=== PATIENT | female | born 1965 | race Caucasian/White ===

== ENCOUNTER → 2016-08-31 | Outpatient (CLI) | payer OTHER ==
[2016-08-31 19:11] LABS: ALT 25 U/L (9-52); AST 24 U/L (14-36); Alkaline Phosphatase 79 U/L (38-126); Anion Gap 12 mmol/L; Blood Urea Nitrogen 11 mg/dL (7-17); Carbon Dioxide 26 mmol/L (22-30); Chloride 104 mmol/L (98-107); Cholesterol 184 mg/dL (<200); Glucose 87 mg/dL (74-99); HDL Cholesterol 53 mg/dL (40-60); Non-African American GFR(MDRD) >60 (>60 ml/min/1.73 sqM); Potassium 4.3 mmol/L (3.5-5.1); Sodium 142 mmol/L (137-145); Total Bilirubin 0.7 mg/dL (0.2-1.3); Total Protein 7.5 g/dL (6.3-8.2); Triglycerides 141 mg/dL (<150)
[2016-08-31 19:12] LABS: Basophils % (A) 0 %; CH 32.3; CHCM 32.9; Eosinophils # (A) 0.2 k/uL (0-0.7); Eosinophils % (A) 4 %; HCT 47.2 % (34.0-46.0); HGB 15.8 gm/dL (11.4-16.0); Luc # (Auto) 0.12; Luc % (Auto) 2; Lymphocytes # (A) 1.9 k/uL (1.0-4.8); Lymphocytes % (A) 28 %; MCH 33.1 pg (25.0-35.0); MCHC 33.5 g/dL (31.0-37.0); MCV 98.6 fL (80.0-100.0); Mean Platelet Volume 7.5; Monocytes # (A) 0.5 k/uL (0-1.0); Monocytes % (A) 7 %; Neutrophils # (A) 3.9 k/uL (1.3-7.7); Neutrophils % (A) 59 %; RBC 4.78 m/uL (3.80-5.40); RDW 12.6 % (11.5-15.5); WBC 6.6 k/uL (3.8-10.6); WBC (Perox) 6.66
== END ==
LOC: MMGSC 11:08
PROVIDERS: ATTEND Family Medicine
DX: R63.5 Abnormal weight gain (principal); R03.0 Elevated blood-pressure reading, without diagnosis of hypertension; Z51.81 Encounter for therapeutic drug level monitoring
CPT/HCPCS: 36415; 80053; 80061; 84439; 84443; 85025

== ENCOUNTER → 2016-10-04 | Outpatient (CLI) | payer OTHER | END | disposition home or self-care (01) | LOC: MMGSC 15:13 | PROVIDERS: ATTEND Family Medicine | DX: N76.0 Acute vaginitis (principal) | CPT/HCPCS: 87070; 87205; 87491; 87591 ==

== ENCOUNTER → 2016-10-13 | Day surgery (SDC) | payer BC, OTHER ==
[2016-10-13 13:13] VITALS: RESP 16; BMI 24.0
--- NOTE | 2016-10-13 16:02 | MM ---
Stereotactic core biopsy left breast. HISTORY: Microcalcifications. The calcifications in question within the left breast were targeted by the undersigned. The examination was performed by the surgeon. Specimen radiograph demonstrates numerous calcifications within the specimen submitted. Post procedural mammogram demonstrates appropriate deployment of radiopaque clip marker. The patient tolerated the procedure well and left the department in stable condition. Pathology results are pending. IMPRESSION: Successful stereotactic core biopsy left breast with pathology results pending. Pathology Results: Benign BREAST, LEFT, SITE A, CORE BIOPSY: FIBROCYSTIC CHANGES INCLUDING SCLEROSING ADENOSIS WITH CALCIFICATIONS, FIBROSIS AND CYSTS. Recommendation Follow up mammogram of the left breast in 6 months. LELED
[2016-10-13 16:04] VITALS: BP 112/74; PULSE 84; TEMP 97.8
--- NOTE | 2016-10-15 12:23 | PCN ---
The patient is a 51 year old white female who was noted to have a mammographic abnormality in the left breast for which stereotactic core biopsy was recommended. The area of the breast was retroareolar medial to the midline. The patient was positioned on a low rad table and the area of concern was localized. The approach for the biopsy was in the CC view from a superior aspect. This was consistent with ( ) this was chosen as the best view in order to see the microcalcifications. The mammotome ( ) an 8 gauge mammotome needle was driven to the correct coordinates and after prefire views were obtained, the needle was fired and postfire views were obtained. Multiple core biopsies were obtained. Radiograph of the specimen revealed the area of concern had been sampled. A marking clip was then left behind. The marking clip is a [id number]. The patient tolerated the procedure in stable condition. The specimen was sent to pathology for evaluation. It should be noted that prior to the biopsy, the patient had undergone a breast examination and no dominant mass or nodules of concern were noted in the breast and no axillary adenopathy of concern was identified in either breast or axilla. NAIN
== END ==
LOC: RADMAMWWP 12:50
PROVIDERS: ATTEND Surgery
DX: N60.12 Diffuse cystic mastopathy of left breast (principal); N60.22 Fibroadenosis of left breast; R92.8 Other abnormal and inconclusive findings on diagnostic imaging of breast; R92.0 Mammographic microcalcification found on diagnostic imaging of breast; R92.1 Mammographic calcification found on diagnostic imaging of breast
CPT/HCPCS: 88305; 19081; A4648; J2001

== ENCOUNTER → 2016-10-17 | Outpatient (CLI) | payer BC ==
--- NOTE | 2016-10-17 16:08 | BD ---
EXAMINATION TYPE: MG DEXA axial skeleton. DATE OF EXAM: 10/17/2016 COMPARISON: none CLINICAL HISTORY: 51-year-old female post menopausal Height: 5'3 Weight: 141 FRAX RISK QUESTIONS: Alcohol (3 or more units per day): no Family History (Parent hip fracture): no Glucocorticoids (More than 3mos): no (Ex: prednisone, prednisolone, methylprednisolone, dexamethasone, and hydrocortisone). History of Fracture in Adulthood: no Secondary Osteoporosis: 1. Type 1 Diabetes: no 2. Hyperthyroidism: no 3. Menopause before 45: no 4. Malnutrition: no 5. Chronic liver disease: no Rheumatoid Arthritis: no Current Tobacco Use: yes RISK FACTORS HISTORY OF: Family History of Osteoporosis: yes Active: no Postmenopausal woman: MEDICATIONS: Additional Medications: pain, Adderall, Xanax, naproxen Additional History: cervical spine 2007 EXAM MEASUREMENTS: Bone mineral densitometry was performed using the [employer] System. Bone mineral density as measured about the Lumbar spine is: ----- L1-L4(G/cm2): 1.028 T Score Values are as follows: ----- L2: -1.1 ----- L3: -0.8 ----- L4: -1.6 ----- L1-L4: -1.3 Bone mineral density about the R hip (g/cm2): 0.766 Bone mineral density about the L hip (g/cm2): 0.822 T Score values are as follows: -----R Neck: -2.0 -----L Neck: -1.6 -----R Total: -2.0 -----L Total: -1.7 IMPRESSION: Osteopenia as indicated by T score values in the lumbar spine and both hips. There is slightly increased risk of fracture and the patient may be considered for treatment. Re-Screen 2-5 years. NOTE: T-SCORE=SD OF THE YOUNG ADULT MEAN.
== END ==
LOC: RADBDWWP 14:01
PROVIDERS: ATTEND Family Medicine
DX: M85.88 Other specified disorders of bone density and structure, other site (principal); M85.851 Other specified disorders of bone density and structure, right thigh; M85.852 Other specified disorders of bone density and structure, left thigh; Z78.0 Asymptomatic menopausal state
CPT/HCPCS: 77080

== ENCOUNTER → 2016-10-17 | Outpatient (CLI) | payer BC ==
--- NOTE | 2016-10-17 15:42 | XR ---
Right RIBS HISTORY: Pain, trauma 2 weeks prior 4 views of the right ribs No comparisons Bone mineralization is reduced. Anterior rib fracture suspected at the anterior 11th rib level and po ssibly 10th rib with possible displacement. There is no pneumothorax or pleural effusion. IMPRESSION: Right 10th and possibly 11th rib fractures anteriorly.
== END ==
LOC: RADXRMAIN 14:26
PROVIDERS: ATTEND Family Medicine
DX: S22.31XA Fracture of one rib, right side, initial encounter for closed fracture (principal)

== ENCOUNTER → 2018-03-12 | Outpatient (CLI) | payer SELFPAY ==
--- NOTE | 2018-03-12 11:11 | MM ---
Reason for exam: additional evaluation requested from prior study. Last mammogram was performed 4 years and 6 months ago. History: Benign MG stereo VAD BX LT of the left breast, October 13, 2016. Took hormonal contraceptives for 23 years beginning at age 18. Physical Findings: Nurse did not find any significant physical abnormalities on exam. MG Diagnostic Mammo w CAD CANDELARIO Bilateral CC and MLO view(s) were taken. Prior study comparison: September 05, 2013, mammogram. The breast tissue is heterogeneously dense. This may lower the sensitivity of mammography. Benign appearing bilateral calcifications. Left biopsy marker present. These results were verbally communicated with the patient and result sheet given to the patient on 03/12/18. ASSESSMENT: Benign, BI-RAD 2 RECOMMENDATION: Routine screening mammogram of both breasts in 1 year.
== END | disposition home or self-care (01) ==
LOC: RADMAMWWP 09:53
PROVIDERS: ATTEND Family Medicine
DX: R92.8 Other abnormal and inconclusive findings on diagnostic imaging of breast (principal)
CPT/HCPCS: 77066

== ENCOUNTER → 2018-06-29 | Outpatient (CLI) | payer SELFPAY ==
--- NOTE | 2018-06-29 08:20 | XR ---
Left foot HISTORY: Left foot pain third and fourth metatarsal region 3 views of the left foot Bone mineralization, joint spaces, alignment are maintained. No fracture or dislocation. There is min imal plantar calcaneal spur. IMPRESSION: No significant abnormality evident to account for patient's symptoms
== END | disposition home or self-care (01) ==
LOC: RADXRMAIN 07:11
PROVIDERS: ATTEND Family Medicine
DX: R52 Pain, unspecified (principal)

== ENCOUNTER → 2019-04-26 | Outpatient (CLI) | payer OTHER ==
--- NOTE | 2019-04-26 12:50 | XR ---
EXAMINATION TYPE: XR hand complete LT DATE OF EXAM: 04/26/2019 COMPARISON: NONE HISTORY: Pain TECHNIQUE: Three views are submitted. FINDINGS: The osseous structures are intact. The joint spaces are preserved and there is no acute fracture or dislocation. Mild diffuse osteopenia. IMPRESSION: 1. No definite acute fracture or dislocation if symptoms persist, follow-up study in 7 to 10 days wo uld be suggested
== END | disposition home or self-care (01) ==
LOC: RAD 12:28
PROVIDERS: ATTEND Family Medicine
DX: M25.542 Pain in joints of left hand (principal)

== ENCOUNTER → 2019-05-10 | Outpatient (CLI) | payer SELFPAY ==
--- NOTE | 2019-05-13 11:31 | MM ---
Reason for exam: screening (asymptomatic). Last mammogram was performed 1 year and 2 months ago. History: Benign MG stereo VAD BX LT of the left breast, October 13, 2016. Took hormonal contraceptives for 23 years beginning at age 18. Physical Findings: A clinical breast exam by your physician is recommended on an annual basis and results should be correlated with mammographic findings. MG 3D Screening Mammo W/Cad Bilateral CC and MLO view(s) were taken. Prior study comparison: March 12, 2018, bilateral MG diagnostic mammo w CAD CANDELARIO. September 05, 2013, mammogram. The breast tissue is heterogeneously dense. This may lower the sensitivity of mammography. Benign appearing bilateral calcifications. No suspicious abnormality. Left biopsy marker. No significant changes when compared with prior studies. ASSESSMENT: Benign, BI-RAD 2 RECOMMENDATION: Routine screening mammogram of both breasts in 1 year.
== END | disposition home or self-care (01) ==
LOC: RADMAMWWP 07:02
PROVIDERS: ATTEND Family Medicine
DX: Z12.31 Encounter for screening mammogram for malignant neoplasm of breast (principal)
CPT/HCPCS: 77063; 77067

== ENCOUNTER 2019-06-14 15:36 | Emergency (ER) | payer OTHER ==
[2019-06-14 15:47] VITALS: BP 120/78; PULSE 94; RESP 20; TEMP 98.4
--- NOTE | 2019-06-14 16:56 | XR ---
EXAMINATION TYPE: XR ribs LT w pa chest xray DATE OF EXAM: 06/14/2019 COMPARISON: NONE HISTORY: Rib pain TECHNIQUE: 5 views FINDINGS: Heart and mediastinum are normal. Lungs are clear of infiltrate. There are no hilar masses. Diaphragm is normal. There is some mild pleural reaction at the left cardiophrenic angle. I see no r ib fracture. IMPRESSION: Mild pleural reaction at the left cardiophrenic angle. No fracture seen. Normal heart.
--- NOTE | 2019-06-14 17:18 | ED ---
Chest Pain HPI - General Chief Complaint: Chest Pain Stated Complaint: rib pain Time Seen by Provider: 06/14/19 16:00 Source: patient Mode of arrival: ambulatory Limitations: no limitations - History of Present Illness Initial Comments: 54-year-old female presenting for left rib pain. Patient states that yesterday while in the car she turned around leaning against the edge of the seat when she pushing in further to gain more distance to close a door (while sitting in from, door in back with twisting motion), she felt a pop in the right left side of the ribs, she states she felt a total of 2 pops and now has pain to palpation of the area as well as pain with deep inspiration. Patient denies experiencing similar symptoms before. Patient denies any chest pressure she denies shortness of breath. Denies any leg swelling history of cancer, recent surgeries, immobilization or DVT/pulmonary embolus. Remaining ROS (-). Upon arrival patient appears well there is no signs of acute distress - Related Data Home Medications Medication Instructions Recorded Confirmed ALPRAZolam [Xanax] 1 mg PO BID PRN 01/01/14 10/13/16 Dextroamphetamine/Amphetamine 30 mg PO BID 01/01/14 10/13/16 [Adderall] Hydrocodone/Acetaminophen [[place] 1 each PO QID PRN 01/01/14 10/13/16 10-325] Imitrex(Dose Unknown) 100 mg PO BID PRN 01/01/14 10/13/16 Naproxen [Naprosyn] 500 mg PO QID PRN 01/01/14 10/13/16 SUMAtriptan SUCCINATE [Imitrex] 4 mg SQ BID PRN 01/01/14 10/13/16 Allergies Allergy/AdvReac Type Severity Reaction Status Date / Time No Known Allergies Allergy Verified 06/14/19 15:47 Review of Systems ROS Statement: Those systems with pertinent positive or pertinent negative responses have been documented in the HPI. ROS Other: All systems not noted in ROS Statement are negative. Past Medical History Past Medical History: Chest Pain / Angina, Fibromyalgia Additional Past Medical History / Comment(s): migraines, hx angina years ago, kidney stones, History of Any Multi-Drug Resistant Organisms: None Reported Past Surgical History: Hysterectomy, Tonsillectomy Additional Past Surgical History / Comment(s): disk replacement in neck, ligia myringotomy, stent in ureter Past Anesthesia/Blood Transfusion Reactions: Previous Problems w/ Anesthesia Additional Past Anesthesia/Blood Transfusion Reaction / Comment(s): takes a while to come out, could "hear everything going on in the room" one time Past Psychological History: ADD/ADHD, Anxiety, Depression Smoking Status: Current every day smoker Past Alcohol Use History: None Reported Past Drug Use History: None Reported - Past Family History Mother Family Medical History: Cancer Additional Family Medical History / Comment(s): colon cancer General Exam - General Exam Comments Initial Comments: General: The patient is awake and alert, in no distress, in no distress. Eye: Pupils are equal, round and reactive to light, extra-ocular movements are intact. No nystagmus. There is normal conjunctiva bilaterally. No signs of icterus. Ears, nose, mouth and throat: There are moist mucous membranes and no oral lesions. Neck: The neck is supple, there is no tenderness or JVD. Cardiovascular: There is a regular rate and rhythm. No murmur, rub or gallop is appreciated. Respiratory: Lungs are clear to auscultation, respirations are non-labored, breath sounds are equal. No wheezes, stridor, rales, or rhonchi. Gastrointestinal: Soft, non-distended, non-tender abdomen without masses or organomegaly noted. There is no rebound or guarding present. Musculoskeletal: Pain to palpation no bruising swelling over the anterior lateral ribs 6/7, jumps when palpated. Normal ROM, no tenderness. Strength 5/5. Sensation intact. Radial pulses equal bilaterally 2+. Neurological: A&O x 3. CN II-XII intact grossly, There are no obvious motor or sensory deficits. Coordination appears grossly intact. Speech is normal. Skin: Skin is warm and dry and no rashes or lesions are noted. Psychiatric: Cooperative, appropriate mood & affect, normal judgment. Limitations: no limitations Course Vital Signs 06/14/19 06/14/19 06/14/19 15:44 16:20 17:48 Temperature 98.4 F 98.4 F Pulse Rate 94 94 Pulse Rate [ 94 Bilateral] Respiratory 20 20 Rate Blood Pressure 120/78 120/78 O2 Sat by Pulse 99 99 Oximetry Chest Pain MDM - MDM 54-year-old female presents today for left-sided rib pain reproducible on examination with touch as well as rotation of the trunk. Patient has lung sounds present in all antunez. There is no evidence of pneumothorax there is a pleural reaction noted at the cardiophrenic angle this is nonspecific findigns. Patient denies SOB. Pain is pleuritic localized to the left ribs. Patient appears well. VS stable. Patient will be discharged with PCP f/u. Incentive spirometer given and instrcuted to use 10x a day while awake. Patient will be discharged at this time. Recommended repeat CXR in 1 week. If develop SOB patient is to return. Patient agreeable to care plan and discharge at this time. Discussed case and reviewed imaging studies with Dr. Gasca who is agreeable to care plan. Disposition Clinical Impression: Rib pain on left side Disposition: HOME SELF-CARE Condition: Good Instructions (If sedation given, give patient instructions): Rib Fracture (ED) Additional Instructions: Please use medication as discussed. Please follow-up with family doctor in the next 2 days. Use incentive spirometer as discussed. Please return to emergency room if the symptoms increase or worsen or for any other concerns. Is patient prescribed a controlled substance at d/c from ED?: No Referrals: Ruth Cardenas MD [Primary Care Provider] - 1-2 days Time of Disposition: 17:16
== END 2019-06-14 17:48 | disposition home or self-care (01) ==
LOC: EC 15:36
DX: R07.81 Pleurodynia (principal); F09 Unspecified mental disorder due to known physiological condition; F17.200 Nicotine dependence, unspecified, uncomplicated; Z79.899 Other long term (current) drug therapy; Z96.698 Presence of other orthopedic joint implants; X50.1XXA Overexertion from prolonged static or awkward postures, initial encounter; Y93.89 Activity, other specified; Y92.810 Car as the place of occurrence of the external cause
CPT/HCPCS: 99283

== ENCOUNTER 2019-06-18 10:58 | Emergency (ER) | payer OTHER ==
[2019-06-18 11:03] VITALS: RESP 18; TEMP 98.1
[2019-06-18] MEDS ORDERED: HYDROmorphone 1 MG/ML 1 ML SYRINGE IVP STA (11:43)
[2019-06-18] MEDS ORDERED: KETOROLAC 30 MG/ML 1 ML VIAL IVP STA (11:43)
[2019-06-18] MEDS ORDERED: SODIUM CHLORIDE 0.9% 1,000 ML IV ONE (11:44)
[2019-06-18] MEDS ORDERED: ONDANSETRON 4 MG/2 ML VIAL IVP STA (11:54)
--- NOTE | 2019-06-18 11:55 | ED ---
General Adult HPI - General Chief complaint: Recheck/Abnormal Lab/Rx Stated complaint: recheck - rib pain Time Seen by Provider: 06/18/19 11:00 Source: patient, RN notes reviewed, old records reviewed Mode of arrival: ambulatory Limitations: no limitations - History of Present Illness Initial comments: This a 54-year-old female who presents emergency Department complaining of rib pain. Patient states she's in emergency department a week ago for the same rib pain it occurred after coughing. Patient states last night she twisted bed and the pain came back per patient states since that she's also started vomiting and she doesn't know if it secondary to pain or she has something else going on. Patient denies any anterior chest pain or any shortness of breath per patient denies fever chills per patient denies any abdominal pain. Patient states she is nauseated but has no diarrhea. Patient denies any back pain. Patient denies dysuria hematuria urinary frequency. - Related Data Home Medications Medication Instructions Recorded Confirmed ALPRAZolam [Xanax] 1 mg PO BID PRN 01/01/14 10/13/16 Dextroamphetamine/Amphetamine 30 mg PO BID 01/01/14 10/13/16 [Adderall] Hydrocodone/Acetaminophen [[place] 1 each PO QID PRN 01/01/14 10/13/16 10-325] Imitrex(Dose Unknown) 100 mg PO BID PRN 01/01/14 10/13/16 Naproxen [Naprosyn] 500 mg PO QID PRN 01/01/14 10/13/16 SUMAtriptan SUCCINATE [Imitrex] 4 mg SQ BID PRN 01/01/14 10/13/16 Previous Rx's Medication Instructions Recorded Metoclopramide [Reglan] 10 mg PO Q8H #5 tab 06/18/19 Allergies Allergy/AdvReac Type Severity Reaction Status Date / Time No Known Allergies Allergy Verified 06/18/19 11:04 Review of Systems ROS Statement: Those systems with pertinent positive or pertinent negative responses have been documented in the HPI. ROS Other: All systems not noted in ROS Statement are negative. Past Medical History Past Medical History: Chest Pain / Angina, Fibromyalgia Additional Past Medical History / Comment(s): migraines, hx angina years ago, kidney stones, History of Any Multi-Drug Resistant Organisms: None Reported Past Surgical History: Hysterectomy, Tonsillectomy Additional Past Surgical History / Comment(s): disk replacement in neck, ligia myringotomy, stent in ureter Past Anesthesia/Blood Transfusion Reactions: Previous Problems w/ Anesthesia Additional Past Anesthesia/Blood Transfusion Reaction / Comment(s): takes a while to come out, could "hear everything going on in the room" one time Past Psychological History: ADD/ADHD, Anxiety, Depression Smoking Status: Current every day smoker Past Alcohol Use History: None Reported Past Drug Use History: None Reported - Past Family History Mother Family Medical History: Cancer Additional Family Medical History / Comment(s): colon cancer General Exam - General Exam Comments Initial Comments: GENERAL: Patient is well-developed and well-nourished. Patient is nontoxic and well- hydrated and is in moderate distress. ENT: Neck is soft and supple. No significant lymphadenopathy is noted. Oropharynx is clear. Moist mucous membranes. Neck has full range of motion without eliciting any pain. EYES: The sclera were anicteric and conjunctiva were pink and moist. Extraocular movements were intact and pupils were equal round and reactive to light. Eyelids were unremarkable. PULMONARY: Unlabored respirations. Good breath sounds bilaterally. No audible rales rhonchi or wheezing was noted. CARDIOVASCULAR: There is a regular rate and rhythm without any murmurs gallops or rubs. Patient has tenderness in the left lateral lower ribs ABDOMEN: Soft and nontender with normal bowel sounds. SKIN: Skin is clear with no lesions or rashes and otherwise unremarkable. NEUROLOGIC: Patient is alert and oriented x3. Cranial nerves II through XII are grossly intact. Motor and sensory are also intact. Normal speech, volume and content. Symmetrical smile MUSCULOSKELETAL: Normal extremities with adequate strength and full range of motion. LYMPHATICS: No significant lymphadenopathy is noted PSYCHIATRIC: Normal psychiatric evaluation. Limitations: no limitations Course Vital Signs 06/18/19 11:01 Temperature 98.1 F Pulse Rate 86 Respiratory 18 Rate Blood Pressure 114/76 O2 Sat by Pulse 98 Oximetry Medical Decision Making - Lab Data Result diagrams: 06/18/19 12:00 06/18/19 12:00 Lab Results 06/18/19 06/18/19 Range/Units 12:00 12:00 WBC 6.6 (3.8-10.6) k/uL RBC 4.32 (3.80-5.40) m/uL Hgb 13.3 (11.4-16.0) gm/dL Hct 39.2 (34.0-46.0) % MCV 90.7 (80.0-100.0) fL MCH 30.7 (25.0-35.0) pg MCHC 33.8 (31.0-37.0) g/dL RDW 12.6 (11.5-15.5) % Plt Count 248 (150-450) k/uL Neutrophils % 74 % Lymphocytes % 18 % Monocytes % 6 % Eosinophils % 1 % Basophils % 0 % Neutrophils # 4.9 (1.3-7.7) k/uL Lymphocytes # 1.2 (1.0-4.8) k/uL Monocytes # 0.4 (0-1.0) k/uL Eosinophils # 0.1 (0-0.7) k/uL Basophils # 0.0 (0-0.2) k/uL Sodium 137 (137-145) mmol/L Potassium 4.9 (3.5-5.1) mmol/L Chloride 106 (98-107) mmol/L Carbon Dioxide 22 (22-30) mmol/L Anion Gap 9 mmol/L BUN 15 (7-17) mg/dL Creatinine 0.60 (0.52-1.04) mg/dL Est GFR (CKD-EPI)AfAm >90 (>60 ml/min/1.73 sqM) Est GFR (CKD-EPI)NonAf >90 (>60 ml/min/1.73 sqM) Glucose 102 H (74-99) mg/dL Calcium 9.6 (8.4-10.2) mg/dL Total Bilirubin 1.3 (0.2-1.3) mg/dL AST 49 H (14-36) U/L ALT 23 (4-34) U/L Alkaline Phosphatase 77 (38-126) U/L Total Protein 7.2 (6.3-8.2) g/dL Albumin 4.3 (3.5-5.0) g/dL Amylase 38 (30-110) U/L Lipase 56 (23-300) U/L Disposition Clinical Impression: Chest wall pain, Acute vomiting Disposition: HOME SELF-CARE Condition: Good Instructions (If sedation given, give patient instructions): Acute Nausea and Vomiting (ED), Chest Wall Pain (ED) Prescriptions: Metoclopramide [Reglan] 10 mg PO Q8H #5 tab Is patient prescribed a controlled substance at d/c from ED?: No Referrals: Ruth Cardenas MD [Primary Care Provider] - 1-2 days Time of Disposition: 13:05
[2019-06-18 12:16] LABS: Basophils % (A) 0 %; Eosinophils # (A) 0.1 k/uL (0-0.7); Eosinophils % (A) 1 %; HCT 39.2 % (34.0-46.0); HGB 13.3 gm/dL (11.4-16.0); Lymphocytes # (A) 1.2 k/uL (1.0-4.8); Lymphocytes % (A) 18 %; MCH 30.7 pg (25.0-35.0); MCHC 33.8 g/dL (31.0-37.0); MCV 90.7 fL (80.0-100.0); Mean Platelet Volume 7.2; Monocytes # (A) 0.4 k/uL (0-1.0); Monocytes % (A) 6 %; Neutrophils # (A) 4.9 k/uL (1.3-7.7); Neutrophils % (A) 74 %; Platelet Count 248 k/uL (150-450); RBC 4.32 m/uL (3.80-5.40); RDW 12.6 % (11.5-15.5); WBC 6.6 k/uL (3.8-10.6)
--- NOTE | 2019-06-18 12:27 | XR ---
EXAMINATION TYPE: XR chest 2V DATE OF EXAM: 06/18/2019 COMPARISON: Prior chest x-ray dated 06/14/2019 HISTORY: Difficulty breathing TECHNIQUE: Frontal and lateral views of the chest are obtained. FINDINGS: There is no focal air space opacity, pleural effusion, or pneumothorax seen. The cardiac silhouette size is within normal limits. The osseous structures are intact, postop changes noted to the cervical spine, there are overlying artifacts. IMPRESSION: No acute cardiopulmonary process.
[2019-06-18 12:33] LABS: ALT 23 U/L (4-34); AST 49 U/L (14-36); African American GFR (CKD) >90 (>60 ml/min/1.73 sqM); Albumin 4.3 g/dL (3.5-5.0); Alkaline Phosphatase 77 U/L (38-126); Amylase 38 U/L (30-110); Anion Gap 9 mmol/L; Blood Urea Nitrogen 15 mg/dL (7-17); Calcium 9.6 mg/dL (8.4-10.2); Carbon Dioxide 22 mmol/L (22-30); Chloride 106 mmol/L (98-107); Glucose 102 mg/dL (74-99); Non-African American GFR(CKD) >90 (>60 ml/min/1.73 sqM); Sodium 137 mmol/L (137-145); Total Bilirubin 1.3 mg/dL (0.2-1.3); Total Protein 7.2 g/dL (6.3-8.2)
[2019-06-18 12:45] LABS: Potassium 4.9 mmol/L (3.5-5.1)
[2019-06-18] MEDS ORDERED: METOCLOPRAMIDE 5 MG/ML 2 ML VIAL IVP STA (12:46)
[2019-06-18] MEDS ORDERED: ONDANSETRON 4 MG ODT STARTER PACK 2 TAB BTL PO STA (13:05)
[2019-06-18 13:28] VITALS: BP 112/79; PULSE 81
== END 2019-06-18 13:28 | disposition home or self-care (01) ==
LOC: EC 10:58
DX: R07.89 Other chest pain (principal); R11.2 Nausea with vomiting, unspecified; F90.9 Attention-deficit hyperactivity disorder, unspecified type; F41.9 Anxiety disorder, unspecified; F32.9 Major depressive disorder, single episode, unspecified; M79.7 Fibromyalgia; F17.200 Nicotine dependence, unspecified, uncomplicated; I25.2 Old myocardial infarction; Z79.899 Other long term (current) drug therapy
CPT/HCPCS: 36415; 80053; 82150; 83690; 85025; 71046; 99284; 96374; 96375 ×3; 96361; J2765; J2405; J1885; J1170

== ENCOUNTER → 2020-07-16 | Outpatient (CLI) | payer OTHER ==
--- NOTE | 2020-07-17 09:27 | CTL ---
EXAMINATION TYPE: CT Low Dose Lung DATE OF EXAM ORDERED: 07/16/2020 HISTORY: Personal tobacco use. Lung cancer screening CT DLP: 83.9 mGycm Automated exposure control for dose reduction was used. SCREENING VISIT: Initial COMPARISON: None TECHNIQUE: Low dose computed tomography scan was performed through the chest at 1 mm thick sections a nd reconstructed images in the coronal plane at [address] DIAGNOSTIC QUALITY: Satisfactory FINDINGS: LUNG NODULES: None. There is a small area of pneumonitis in the anterior right upper lobe. Example image series 4 image 6 5. LUNGS: COPD: Severity: None Fibrosis: Severity: None Lymph nodes: None Other findings: None RIGHT PLEURAL SPACE: Effusion: None Calcification: None Thickening: None Pneumothorax: None LEFT PLEURAL SPACE: Effusion: None Calcification: None Thickening: None Pneumothorax: None HEART: Heart Size: Normal Coronary calcification: None Pericardial effusion: None OTHER FINDINGS: Upper abdomen: Normal Bony thorax: Normal Supraclavicular region: Normal Other: The ascending thoracic aorta at the level of main pulmonary artery is 3.2 cm. Main pulmonary a rtery at the bifurcation is 2.3 cm. IMPRESSION: 1. Normal low-dose CT chest FOLLOW UP CT CHEST RECOMMENDATION: Follow-up low-dose CT chest one year CT LUNG RAD: Lung-Rad 1 Negative
== END | disposition home or self-care (01) ==
LOC: RADCTMAIN 16:52
PROVIDERS: ATTEND Family Medicine
DX: Z12.2 Encounter for screening for malignant neoplasm of respiratory organs (principal)
CPT/HCPCS: 71271

== ENCOUNTER → 2020-08-11 | Outpatient (CLI) | payer OTHER ==
--- NOTE | 2020-08-12 10:31 | MM ---
Reason for exam: screening (asymptomatic). Last mammogram was performed 1 year and 3 months ago. History: Benign MG stereo VAD BX LT of the left breast, October 13, 2016. Took hormonal contraceptives for 23 years beginning at age 18. Physical Findings: A clinical breast exam by your physician is recommended on an annual basis and results should be correlated with mammographic findings. MG 3D Screening Mammo W/Cad Bilateral CC and MLO view(s) were taken. Prior study comparison: May 10, 2019, bilateral MG 3d screening mammo w/cad. March 12, 2018, bilateral MG diagnostic mammo w CAD CANDELARIO. The breast tissue is heterogeneously dense. This may lower the sensitivity of mammography. Stable benign calcifications. There is no discrete abnormality. No significant changes when compared with prior studies. ASSESSMENT: Benign, BI-RAD 2 RECOMMENDATION: Routine screening mammogram of both breasts in 1 year.
== END | disposition home or self-care (01) ==
LOC: RADMAMWWP 09:03
PROVIDERS: ATTEND Family Medicine
DX: Z12.31 Encounter for screening mammogram for malignant neoplasm of breast (principal)
CPT/HCPCS: 77063; 77067

== ENCOUNTER → 2020-08-31 | Outpatient (CLI) | payer OTHER ==
[2020-08-31 14:39] LABS: Albumin 4.7 g/dL (3.80-4.90); Albumin/Globulin Ratio 2.35 (1.60-3.17); Anion Gap 4.6 mmol/L (4.00-12.00); BUN/Creat Ratio 21.43 Ratio (12.00-20.00); Calcium 9.6 mg/dL (8.7-10.3); Carbon Dioxide 29.4 mmol/L (21.6-31.8); Chol/HDL Ratio 3.53; LDL Cholesterol,Calculated 93.6 mg/dL (0.0-131.0); Non-African American GFR(CKD) 97.5 (60.0-200.0); Potassium 4.3 mmol/L (3.5-5.5); Total Bilirubin 0.7 mg/dL (0.3-1.2); Total Protein 6.7 g/dL (6.2-8.2); VLDL Calculation 20.4 mg/dL (5.00-40.00)
[2020-08-31 14:41] LABS: Basophils # (A) 0.02 X 10*3/uL (0.00-0.10); Basophils % (A) 0.4 %; Eosinophils # (A) 0.13 X 10*3/uL (0.04-0.35); Eosinophils % (A) 2.3 %; HCT 42.5 % (37.2-46.3); Lymphocytes # (A) 1.91 X 10*3/uL (0.90-5.00); Lymphocytes % (A) 34.4 %; MCH 30.6 pg (27.0-32.0); MCHC 32.9 g/dL (32.0-37.0); MCV 92.8 fL (80.0-97.0); Mean Platelet Volume 9.8 fL (9.5-12.2); Monocytes # (A) 0.45 X 10*3/uL (0.20-1.00); Monocytes % (A) 8.1 %; Neutrophils # (A) 3.04 X 10*3/uL (1.80-7.70); Neutrophils % (A) 54.6 %; Platelet Count 300 X 10*3/uL (140-440); RBC 4.58 X 10*6/uL (4.10-5.20); RDW 12.1 % (11.5-14.5); WBC 5.56 X 10*3/uL (4.50-10.00)
== END | disposition home or self-care (01) ==
LOC: LABWHC1 10:16
PROVIDERS: ATTEND Family Medicine
DX: Z00.00 Encounter for general adult medical examination without abnormal findings (principal)
CPT/HCPCS: 36415; 80053; 80061; 82306; 82607; 84443; 85025

== ENCOUNTER 2020-12-07 12:55 | Emergency (ER) | payer OTHER ==
[2020-12-07 13:19] VITALS: BP 119/76; PULSE 96; RESP 18; TEMP 98.5
[2020-12-07] MEDS ORDERED: CYCLOBENZAPRINE 10 MG TAB PO STA (14:23)
[2020-12-07] MEDS ORDERED: KETOROLAC 15 MG/ML 1 ML VIAL IM STA (14:23)
--- NOTE | 2020-12-07 14:28 | ED ---
General Adult HPI - General Chief complaint: Back Pain/Injury Stated complaint: back pain Time Seen by Provider: 12/07/20 13:35 Source: patient, family, RN notes reviewed, old records reviewed Mode of arrival: ambulatory Limitations: no limitations - History of Present Illness Initial comments: 55-year-old white female, alert and oriented 4, presents to the emergency room with complaints of low back pain. Patient states that she went to bend over and coughed at the same time and she felt a twinge in her lower back. She states that she did take an [place] with no relief. She denies any other symptoms. She states that she has not had this happen to her before. She has no bowel or bladder incontinence, no nausea vomiting or fevers. She is able to move all 4 extremities with no difficulty. -: hour(s) (4) Location: back (Low) Radiation: non-radiation Quality: stabbing, sharp, dull Consistency: constant Improves with: rest Worsens with: movement Associated Symptoms: denies other symptoms Treatments Prior to Arrival: other ([place]) - Related Data Home Medications Medication Instructions Recorded Confirmed ALPRAZolam [Xanax] 1 mg PO BID PRN 01/01/14 10/13/16 Dextroamphetamine/Amphetamine 30 mg PO BID 01/01/14 10/13/16 [Adderall] Hydrocodone/Acetaminophen [[place] 1 each PO QID PRN 01/01/14 10/13/16 10-325] Imitrex(Dose Unknown) 100 mg PO BID PRN 01/01/14 10/13/16 Naproxen [Naprosyn] 500 mg PO QID PRN 01/01/14 10/13/16 SUMAtriptan SUCCINATE [Imitrex] 4 mg SQ BID PRN 01/01/14 10/13/16 Previous Rx's Medication Instructions Recorded Metoclopramide [Reglan] 10 mg PO Q8H #5 tab 06/18/19 Ibuprofen [Motrin] 600 mg PO Q8HR PRN #30 tab 12/07/20 Lidocaine 5% Patch [Lidoderm] 1 patch TOPICAL DAILY 10 Days #10 12/07/20 patch Allergies Allergy/AdvReac Type Severity Reaction Status Date / Time No Known Allergies Allergy Verified 12/07/20 13:19 Review of Systems ROS Statement: Those systems with pertinent positive or pertinent negative responses have been documented in the HPI. ROS Other: All systems not noted in ROS Statement are negative. Past Medical History Past Medical History: Chest Pain / Angina, Fibromyalgia Additional Past Medical History / Comment(s): migraines, hx angina years ago, kidney stones, History of Any Multi-Drug Resistant Organisms: None Reported Past Surgical History: Hysterectomy, Tonsillectomy Additional Past Surgical History / Comment(s): disk replacement in neck, ligia myringotomy, stent in ureter Past Anesthesia/Blood Transfusion Reactions: Previous Problems w/ Anesthesia Additional Past Anesthesia/Blood Transfusion Reaction / Comment(s): takes a while to come out, could "hear everything going on in the room" one time Past Psychological History: ADD/ADHD, Anxiety, Depression Smoking Status: Current every day smoker Past Alcohol Use History: None Reported Past Drug Use History: None Reported - Past Family History Mother Family Medical History: Cancer Additional Family Medical History / Comment(s): colon cancer General Exam Limitations: no limitations General appearance: alert, in no apparent distress Head exam: Present: atraumatic, normocephalic, normal inspection Eye exam: Present: normal appearance, PERRL, EOMI. Absent: scleral icterus, conjunctival injection, periorbital swelling Neck exam: Present: normal inspection, full ROM. Absent: tenderness, meningismus, lymphadenopathy, thyromegaly Respiratory exam: Present: normal lung sounds bilaterally. Absent: respiratory distress, wheezes, rales, rhonchi, stridor Cardiovascular Exam: Present: regular rate, normal rhythm, normal heart sounds. Absent: systolic murmur, diastolic murmur, rubs, gallop, clicks GI/Abdominal exam: Present: soft, normal bowel sounds. Absent: distended, tenderness, guarding, rebound, rigid Extremities exam: Present: normal inspection, full ROM, normal capillary refill. Absent: tenderness, pedal edema, joint swelling, calf tenderness Back exam: Present: normal inspection, full ROM, tenderness (lumbar), vertebral tenderness. Absent: CVA tenderness (R), CVA tenderness (L), paraspinal tenderness, rash noted Expanded Back exam: Absent: saddle anesthesia Neurological exam: Present: alert, oriented X3, CN II-XII intact Expanded Patient oriented to: Present: person, place, time Speech: Present: fluid speech Motor strength exam: RUE: 5, LUE: 5, RLE: 5, LLE: 5 Eye Response: (4) open spontaneously Motor Response: (6) obeys commands Verbal Response: (5) oriented Psychiatric exam: Present: normal affect, normal mood Skin exam: Present: warm, dry, intact, normal color. Absent: rash Course Vital Signs 12/07/20 13:16 Temperature 98.5 F Pulse Rate 96 Respiratory 18 Rate Blood Pressure 119/76 O2 Sat by Pulse 98 Oximetry Medical Decision Making - Medical Decision Making Patient presents with nontraumatic low back pain. States that she bent over and coughed and she felt a pull in her lower back. She states that she did try [place] at home. Patient was given Toradol and Flexeril in the emergency room. She is able to ambulate. She'll be directed to follow up with her primary care doctor and continue Motrin [id number]-[id number] and Lidoderm patches as needed. Return with any new or worsening symptoms. She was given low back exercises and follow up with orthopedics. Disposition Clinical Impression: Back pain Disposition: HOME SELF-CARE Condition: Good Instructions (If sedation given, give patient instructions): Acute Low Back Pain (ED), Lower Back Exercises (ED) Additional Instructions: Take Motrin 600 mg every 8 hours as needed for pain. You can also use topical Lidoderm patches as prescribed or topical icy/hot. Return if any new or worsening symptoms including increased pain, fevers or incontinence of bowel or bladder. Prescriptions: Lidocaine 5% Patch [Lidoderm] 1 patch TOPICAL DAILY 10 Days #10 patch Ibuprofen [Motrin] 600 mg PO Q8HR PRN #30 tab PRN Reason: Pain Is patient prescribed a controlled substance at d/c from ED?: No Referrals: Ruth Cardenas MD [Primary Care Provider] - 1-2 days Emory Fowler MD [Medical Doctor] - 1-2 days Time of Disposition: 14:43
== END 2020-12-07 16:02 | disposition home or self-care (01) ==
LOC: EC 12:55
DX: M54.5 Low back pain (principal); F32.9 Major depressive disorder, single episode, unspecified; F41.9 Anxiety disorder, unspecified; F90.9 Attention-deficit hyperactivity disorder, unspecified type; M79.7 Fibromyalgia; F17.200 Nicotine dependence, unspecified, uncomplicated; Z79.1 Long term (current) use of non-steroidal anti-inflammatories (NSAID); Z79.899 Other long term (current) drug therapy
CPT/HCPCS: 96372; 99283; J1885

== ENCOUNTER → 2020-12-30 | Outpatient (CLI) | payer OTHER ==
--- NOTE | 2020-12-30 12:35 | CT ---
EXAMINATION TYPE: CT abdomen pelvis wo con DATE OF EXAM: 12/30/2020 HISTORY: Rt flank pain; history of kidney stones. Possible kidney stone. CT DLP: 904 mGycm. Automated Exposure Control for Dose Reduction was Utilized. TECHNIQUE: CT scan of the abdomen and pelvis is performed without oral or IV contrast. COMPARISON: NONE FINDINGS: Within the limitations of a non-contrast study, the following observations are made. LUNG BASES: No significant abnormality is appreciated. LIVER/GB: No significant abnormality is appreciated. PANCREAS: Kcaw-sw-[id number] generalized fat replaced atrophy. Small splenule in the region of pancreat ic tail axial image 45. SPLEEN: No significant abnormality is seen. ADRENALS: Slight asymmetric thickening left adrenal gland consistent with benign lipid rich hyperplas ia. KIDNEYS: There is elongated 6 to 7 mm calculus lower pole right kidney limits 60. No left-sided nephr olithiasis. No hydronephrosis seen bilaterally. Some cortical thinning bilaterally is present. No int raluminal calculus in the poorly distended bladder. BOWEL: Suboptimal evaluation without enteric contrast. Debris-filled stomach suggests recent meal ing estion. Normal-appearing appendix from base of cecum and right lower quadrant. Some sigmoid colonic d iverticula without CT evidence for acute diverticulitis. No suspicious small or large bowel dilatatio n. GENITAL ORGANS: Uterus surgically absent or markedly atrophic. Some scattered bilateral pelvic phlebo liths. LYMPH NODES: No greater than 1cm abdominal or pelvic lymph nodes are appreciated. OSSEOUS STRUCTURES: Prominent Schmorl node inferior T12 endplate right aspect. OTHER: Mild calcified plaque of the aorta extends into branch vessels IMPRESSION: Confirmation of 6 to 7 mm elongated nonobstructing calculus lower pole of the right kidne y. No hydronephrosis or obstructing ureteral calculi bilaterally. No acute findings are evident.
== END | disposition home or self-care (01) ==
LOC: RADCTMAIN 11:54
PROVIDERS: ATTEND Urology
DX: N20.0 Calculus of kidney (principal)
CPT/HCPCS: 74176

== ENCOUNTER → 2021-01-19 | Outpatient (CLI) | payer OTHER ==
[2021-01-19 11:20] LABS: Basophils % (A) 1 %; Eosinophils # (A) 0.1 k/uL (0-0.7); Eosinophils % (A) 3 %; HCT 42.4 % (34.0-46.0); HGB 14.4 gm/dL (11.4-16.0); Lymphocytes # (A) 1.6 k/uL (1.0-4.8); Lymphocytes % (A) 37 %; MCH 31.5 pg (25.0-35.0); MCHC 33.9 g/dL (31.0-37.0); MCV 92.8 fL (80.0-100.0); Monocytes # (A) 0.2 k/uL (0-1.0); Monocytes % (A) 5 %; Neutrophils # (A) 2.2 k/uL (1.3-7.7); Neutrophils % (A) 52 %; Platelet Count 299 k/uL (150-450); RBC 4.57 m/uL (3.80-5.40); RDW 13.2 % (11.5-15.5); WBC 4.2 k/uL (3.8-10.6)
[2021-01-19 11:53] LABS: African American GFR (CKD) >90 (>60 ml/min/1.73 sqM); Anion Gap 8 mmol/L; Blood Urea Nitrogen 13 mg/dL (7-17); Calcium 9.9 mg/dL (8.4-10.2); Carbon Dioxide 26 mmol/L (22-30); Chloride 106 mmol/L (98-107); Glucose 100 mg/dL (74-99); Non-African American GFR(CKD) >90 (>60 ml/min/1.73 sqM); Potassium 4.4 mmol/L (3.5-5.1); Sodium 140 mmol/L (137-145)
== END | disposition home or self-care (01) ==
LOC: LABPAT 09:45
PROVIDERS: ATTEND Urology
DX: Z01.812 Encounter for preprocedural laboratory examination (principal); N20.9 Urinary calculus, unspecified
CPT/HCPCS: 80048; 85025

== ENCOUNTER 2021-01-21 09:22 | Day surgery (SDC) | payer OTHER ==
[2021-01-19 11:25] VITALS: BMI 27.8
--- NOTE | 2021-01-20 18:19 | P.GSHP ---
History of Present Illness H&P Date: 01/20/21 Chief Complaint: Right flank pain The patient is a 55-year-old white female with a history of kidney stones. She now presents with right flank and groin pain. CT scan shows a 6-7 mm right lower pole renal calculus. She was offered the options of ESWL versus ureteroscopy with laser lithotripsy and has elected to undergo the latter. - Constitutional Constitutional: Denies chills, Denies fever - Gastrointestinal Gastrointestinal: Reports nausea - Genitourinary (Female) Genitourinary: Reports flank pain, Reports kidney stones, Denies hematuria Past Medical History Past Medical History: Chest Pain / Angina, Fibromyalgia Additional Past Medical History / Comment(s): migraines, hx angina years ago, left ureteroscopy with laser lithotripsy History of Any Multi-Drug Resistant Organisms: None Reported Past Surgical History: Hysterectomy, Tonsillectomy Additional Past Surgical History / Comment(s): disk replacement in neck, ligia myringotomy, stent in ureter Past Anesthesia/Blood Transfusion Reactions: Previous Problems w/ Anesthesia Additional Past Anesthesia/Blood Transfusion Reaction / Comment(s): takes a while to come out, could "hear everything going on in the room" one time Smoking Status: Current every day smoker - Past Family History Mother Family Medical History: Cancer Additional Family Medical History / Comment(s): colon cancer Medications and Allergies Home Medications Medication Instructions Recorded Confirmed Type Dextroamphetamine/Amphetamine 30 mg PO BID 01/01/14 01/19/21 History [Adderall] Hydrocodone/Acetaminophen [[place] 1 each PO QID PRN 01/01/14 01/19/21 History 10-325] Naproxen [Naprosyn] 500 mg PO QID PRN 01/01/14 01/19/21 History Ibuprofen [Motrin] 600 mg PO Q8HR PRN #30 tab 12/07/20 01/19/21 Rx Metoclopramide [Reglan] 10 mg PO Q8H PRN 01/19/21 01/19/21 History SUMAtriptan SUCCINATE [Imitrex] 100 mg PO DIRECTED PRN 01/19/21 01/19/21 History Allergies Allergy/AdvReac Type Severity Reaction Status Date / Time amoxicillin [From Augmentin] Allergy Nausea & Verified 01/19/21 11:16 Vomiting cefaclor [From Ceclor] Allergy Nausea & Verified 01/19/21 11:16 Vomiting clavulanic acid Allergy Nausea & Verified 01/19/21 11:16 [From Augmentin] Vomiting Surgical - Exam - General well developed, well nourished, no distress - Neck no masses, trachea midline - Respiratory normal respiratory effort - Abdomen Abdomen: soft, tender (Mild right CVA tenderness), no guarding, no rigid, no rebound - Psychiatric oriented to time, oriented to person, oriented to place, speech is normal, memory intact Results - Imaging CT scan - abdomen: report reviewed, image reviewed Assessment and Plan (1) Calculus of kidney Status: Acute Code(s): N20.0 - CALCULUS OF KIDNEY SNOMED Code(s): 34640819 Plan: Cystoscopy, right ureteroscopy with holmium laser lithotripsy, possible stone basketing, possible ureteral stent insertion. The procedure has been reviewed in detail with the patient. She is aware of potential risks, which include anesthesia, bleeding, infection, and ureteral injury.
[~2021-01-21 09:22] MED LIST: DEXAMETHASONE SOD PHOSPHATE 4 MG/ML 1 ML VIAL IV ONE; HYDROmorphone 0.5 MG/0.5 ML SYRINGE IVP PRN; LACTATED RINGERS 1,000 ML IV SCH; LEVOFLOXACIN 500MG-D5W PMX 500 MG in DEXTROSE/WATER 1 100ML.BAG IVPB PRN; ONDANSETRON 4 MG/2 ML VIAL IVP ONE
[2021-01-21] MEDS ORDERED: fentaNYL (PF) 50 MCG/ML 2 ML AMP IVP ONE ×2 (10:06→11:05)
--- NOTE | 2021-01-21 10:08 | XR ---
KUB HISTORY: Preop right-sided kidney stone Frontal KUB on 2 images correlated to prior KUB 01/02/2014, CT 12/30/2020 There is bowel gas which obscures some detail. Faint calcification is noted over the lower pole of th e right kidney measuring approximately 5 to 6 mm and corresponding to CT finding. No evident pneumope ritoneum or bowel obstruction. There are phleboliths noted within the pelvis. Bone mineralization is stable, there is a slight spinal curvature. IMPRESSION: Right-sided nephrolithiasis.
[2021-01-21] MEDS ORDERED: NEOSTIGMINE 1 MG/ML 10 ML VIAL ONE (11:50)
[2021-01-21] MEDS ORDERED: HYDROmorphone (PF) 1 MG/ML ONE (11:50)
[2021-01-21] MEDS ORDERED: MIDAZOLAM 2 MG/2 ML VIAL ONE (11:50)
[2021-01-21] MEDS ORDERED: GLYCOPYRROLATE 0.2 MG/ML 2 ML VIAL ONE (11:50)
[2021-01-21] MEDS ORDERED: PROPOFOL 10 MG/ML 20 ML VIAL IV ONE (11:50)
[2021-01-21] MEDS ORDERED: PHENYLEPHRINE-0.9% NACL SYG 1,000 MCG/10 ML SYRINGE ONE (11:50)
[2021-01-21] MEDS ORDERED: LIDOCAINE 1% INJ 10MG/ML (20 ML MDV) ONE (11:50)
[2021-01-21] MEDS ORDERED: SUCCINYLCHOLINE CHLORIDE 100 MG/5 ML SYR IV ONE (11:50)
[2021-01-21] MEDS ORDERED: fentaNYL (PF) 50 MCG/ML 2 ML AMP ONE (11:50)
[2021-01-21] MEDS ORDERED: ROCURONIUM 10 MG/ML (5 ML VIAL) IV ONE (11:50)
[2021-01-21] MEDS ORDERED: IOPAMIDOL-370 50ML BTL INJ ONE (12:18)
--- NOTE | 2021-01-21 13:33 | P.OP ---
Date of Procedure: 01/21/21 Preoperative Diagnosis: Right renal calculus Postoperative Diagnosis: Right renal calculus, left ureteral calculus Procedure(s) Performed: Cystoscopy, bilateral retrograde pyelograms, bilateral ureteroscopy with Holmium laser lithotripsy and stone basketing, bilateral ureteral stent insertion Anesthesia: ANIL Surgeon: Travis Saul Estimated Blood Loss (ml): 5 IV fluids (ml): 500 Pathology: other (Calculus fragments, sent for chemical analysis) Condition: stable Disposition: PACU Indications for Procedure: The patient is a 55-year-old white female with a history of kidney stones. She now presents with right flank and groin pain. CT scan shows a 6-7 mm right lower pole renal calculus. She was offered the options of ESWL versus ureteroscopy with laser lithotripsy and has elected to undergo the latter. Preoperatively, she reported lower abdominal discomfort and pressure, and therefore the decision was made to perform bilateral retrograde pyelograms as this would be expected for a ureteral calculus but not a renal calculus. Operative Findings: Right lower pole renal calculus. Left mid ureteral calculus. Both fragmented completely. Description of Procedure: The patient was taken to the operating room and placed in the dorsolithotomy position, with legs supported in Felice stirrups. The external genitalia was prepped and draped sterilely. The 30 lens was used to introduce the 21-[place] Giles cystoscopic sheath through the urethra and into the bladder under direct vision. The bladder was examined in its entirety. Both ureteral orifices were normal anatomic location and configuration, and clear urine effluxed from both. No tumors or foreign bodies were seen. Using a 10-[place] cone-tipped catheter, bilateral retrograde pyelograms were performed. Fluoroscopy was utilized to visualize the upper urinary tracts. The right retrograde pyelogram was normal. However, there was evidence of left hydronephrosis. The cystoscope was removed, and the Giles semirigid ureteroscope was advanced into the bladder. The left ureteral orifice was cannulated, and the ureteroscope was slowly advanced under direct vision. Within the mid ureter a calculus was seen, measuring 5-6 mm in size. The 200 holmium laser probe was passed through the ureteroscope, and lithotripsy was performed. The calculus fragmented readily, likely composed of calcium oxalate dihydrate. Alt anca dusting mode was utilized, the calculus fragmented and a 1.9-[place] nitinol basket was used to remove the calculus fragments from the ureter. There was no evidence of ureteral perforation. Pullout ureteroscopy showed only residual dust within the ureter. The flexible ureteroscope was passed into the bladder, but the right ureteral orifice could not be cannulated. .A 0.035 inch Glidewire was passed through the ureteroscope, but the ureteroscope could not be advanced over the wire. The ureteroscope was removed, and an 11/13-[place] ureteral access catheter was passed over the wire, up to the proximal ureter. The flexible ureteroscope was then passed through the ureteral access catheter sheath, up to the right renal pelvis. Each calyx was examined. A 6 mm calculus was seen within a lower pole calyx. The nitinol basket was used to reposition it to an upper pole calyx. The 200 micron Holmium laser probe was passed through the ureteroscope, and lithotripsy was performed. The calculus fragmented readily using a dusting mode, and this was continued until there were no residual calculus fragments exceeding the size of the laser fiber tip. The ureteroscope was slowly withdra wn under direct vision. There was no evidence of ureteral trauma. The cystoscope was advanced into the bladder. The Glidewire was passed through the cystoscope. The right ureteral orifice was cannulated, and the Glidewire was advanced up to the right renal pelvis. A 24 cm, 4.8-[place] double-J ureteral stent was placed over the wire. Proper stent positioning was verified fluoroscopically and endoscopically. A left ureteral stent was placed in an identical fashion. The bladder was emptied and the cystoscope removed. The patient tolerated the procedure well and was taken to the recovery room in stable condition. [employer] Report: Procedure Acuity: Elective Stone Size and Location: 5-6 mm, left mid ureter and right lower pole kidney Ureteral Dilation: No Ureteral Access Sheath Used: Yes (right) Stone Sent for Analysis: Yes All Stones/Fragments Were Removed with a Basket: No Complications: No Preoperative Antibiotics Given: Yes Stent Placed: Yes If Stent Placed, Was String Left Attached: No If Stent Placed, When is it to be Removed: 1 week Discharge Medications: Toradol, tamsulosin, oxybutynin chloride
[2021-01-21] MEDS ORDERED: LACTATED RINGERS 1,000 ML IV ONE ×2 (13:36)
[2021-01-21 13:41] VITALS: TEMP 97.5
[2021-01-21] MEDS ORDERED: ONDANSETRON 4 MG/2 ML VIAL ONE (13:50)
[2021-01-21] MEDS ORDERED: KETOROLAC 15 MG/ML 1 ML VIAL ONE (13:51)
[2021-01-21] MEDS ORDERED: ONDANSETRON 4 MG/2 ML VIAL IVP ONE ×2 (13:54→13:56)
[2021-01-21] MEDS ORDERED: KETOROLAC 15 MG/ML 1 ML VIAL IVP ONE ×2 (13:56→13:57)
[2021-01-21 14:43] VITALS: RESP 18
--- NOTE | 2021-01-21 14:50 | FL ---
Fluoroscopy HISTORY: Lithotripsy 1.33 minutes fluoroscopy time supplied to the referring clinician. 7 intraoperative C-arm images doc ument the procedure. See dictated report from urology.
[2021-01-21 14:52] VITALS: BP 122/82; PULSE 66
== END 2021-01-21 15:15 | disposition home or self-care (01) ==
LOC: OR 09:22
PROVIDERS: ATTEND Urology
DX: N20.2 Calculus of kidney with calculus of ureter (principal); Z87.442 Personal history of urinary calculi; G43.909 Migraine, unspecified, not intractable, without status migrainosus; F17.200 Nicotine dependence, unspecified, uncomplicated; F41.9 Anxiety disorder, unspecified; F32.9 Major depressive disorder, single episode, unspecified
CPT/HCPCS: 52356; 82365; 74018; C2625; C1758; C1769; J2250; J1100; J2710; J2405; J1956; J2001; J3010; J1170 ×2; J1885; J2370; J0330; J2704; Q9967

== ENCOUNTER → 2021-03-01 | Outpatient (CLI) | payer OTHER ==
--- NOTE | 2021-03-01 13:46 | XR ---
KUB HISTORY: N20.0 N20.21 Calculus of Kidney Bilateral Correlation a prior exam 01/21/2021 Overlying bowel gas may obscure underlying detail. Bone mineralization is reduced. Calcifications wit hin the pelvis are again noted. No evidence of bowel obstruction or pneumoperitoneum. IMPRESSION: Nonspecific findings
--- NOTE | 2021-03-01 23:02 | US ---
EXAMINATION TYPE: US kidneys/renal and bladder DATE OF EXAM: 03/01/2021 COMPARISON: CT 12-30-20 CLINICAL HISTORY: 55-year-old female N20.0 N20.21 Calculus of Kidney Bilateral. Recent intervention f or stones. EXAM MEASUREMENTS: Right Kidney: 9.1x4.4x.4.7 cm Left Kidney: 9.7x5.1x5.5 cm Right Kidney: No hydronephrosis. Left Kidney: Tiny 3 mm upper pole echogenic focus. No hydronephrosis. Bladder: Partially distended bladder shows no gross evidence of body. Bilateral Jets seen: Yes IMPRESSION: No hydronephrosis. Punctate 3 mm nonobstructive left renal calculus.
== END | disposition home or self-care (01) ==
LOC: RADUSWWP 12:57
PROVIDERS: ATTEND Urology
DX: N20.0 Calculus of kidney (principal)
CPT/HCPCS: 74018; 76770

== ENCOUNTER → 2021-09-03 | Outpatient (CLI) | payer OTHER ==
--- NOTE | 2021-09-03 12:19 | CT ---
EXAMINATION TYPE: CT abdomen w con DATE OF EXAM: 09/03/2021 COMPARISON: CT abdomen and pelvis December 30, 2020 HISTORY: RUQ pain by ribs CT DLP: 470.70 mGycm Automated exposure control for dose reduction was used. TECHNIQUE: Helical acquisition of images was performed from the lung bases through the top of iliac crest to include entire abdomen. CONTRAST: Performed with Oral Contrast and with IV Contrast, patient injected with 100 mL of Isovue 300. FINDINGS: LUNG BASES: No significant abnormality is appreciated. LIVER/GB: No significant abnormality is appreciated. PANCREAS: Syak-tv-jscwxvlm generalized fat replaced atrophy redemonstrated. SPLEEN: Incidental small splenule redemonstrated axial image 18 inferiorly. ADRENALS: Slight asymmetric thickening left adrenal gland consistent with benign lipid rich hyperplas ia is redemonstrated. KIDNEYS: New 2 to 3 mm calculus upper pole left kidney coronal image 61. Prior bigger right renal robert culus lower Pole level not clearly seen. Delayed phase imaging either not performed or not sent to ID CS. No hydronephrosis seen bilaterally. BOWEL: Oral contrast does not reach colonic level. Sacrum not included in field of view. No suspiciou s small or large bowel dilatation. LYMPH NODES: No greater than 1cm abdominal lymph nodes. OSSEOUS STRUCTURES: Prominent Schmorl node inferior T12 endplate redemonstrated. OTHER: Mild calcified plaque of the distal aorta extends into branch vessels IMPRESSION: Interval passage or successful treatment of the 6 to 7 mm right renal calculus. No new or acute findings identified to account for patient's symptoms of right upper quadrant pain.
== END | disposition home or self-care (01) ==
LOC: RADCTMAIN 10:53
PROVIDERS: ATTEND Family Medicine
DX: N20.0 Calculus of kidney (principal)
CPT/HCPCS: 74160; Q9967

== ENCOUNTER → 2022-03-23 | Outpatient (CLI) | payer OTHER ==
--- NOTE | 2022-03-24 13:05 | MM ---
Reason for Exam: Screening (asymptomatic). Last mammogram was performed 1 year(s) and 7 month(s) ago. Patient History: Menarche at age 13. First Full-Term at age 17. Hysterectomy at age 35. Hormonal Contraceptives for 17 years, 1 month, from age 18 until age 35. 10/13/2016, Benign Core Biopsy on the left side. Risk Values: [place]a 5 year model risk: 1.1%. NCI Lifetime model risk: 6.7%. Prior Study Comparison: 03/12/2018 Bilateral Diagnostic Mammogram, [facility]. 05/10/2019 Bilateral Screening Mammogram, [facility]. 08/11/2020 Bilateral Screening Mammogram, [facility]. Tissue Density: The breast tissue is heterogeneously dense. This may lower the sensitivity of mammography. Findings: Analyzed By CAD. Pattern appears symmetrical and stable. Benign vascular calcification is present bilaterally. Surgical clip is within the anterior left breast. No suspicious groups of microcalcifications, spiculated or lobular masses, architectural distortion or other secondary signs of malignancy are mammographically apparent. Overall Assessment: Benign, BI-RAD 2 Management: Screening Mammogram of both breasts in 1 year. A negative mammogram report should not preclude additional follow up of suspicious palpable abnormalities. Patient should continue monthly self breast exam. A clinical breast exam by your physician is recommended on an annual basis and results should be correlated with mammographic findings. Electronically signed and approved by: Paul Brizuela D.O. Radiologis
== END | disposition home or self-care (01) ==
LOC: RADMAMWWP 15:49
PROVIDERS: ATTEND Family Medicine
DX: Z12.31 Encounter for screening mammogram for malignant neoplasm of breast (principal)
CPT/HCPCS: 77063; 77067

== ENCOUNTER → 2022-11-18 | Outpatient (CLI) | payer OTHER ==
--- NOTE | 2022-11-20 17:34 | CTL ---
EXAMINATION TYPE: CT Low Dose Lung DATE OF EXAM ORDERED: 11/18/2022 HISTORY: Z87.891 PERSONAL HX TOBACCO USE. Current smoker, 38 pack year history. Lung cancer screening CT DLP: 75.[address] CTDI: 2.2 mGy Automated exposure control for dose reduction was used. SCREENING VISIT: Follow-up COMPARISON: 07/16/2020 TECHNIQUE: Low dose computed tomography scan was performed through the chest at 1 mm thick sections a nd reconstructed images in multiple planes at 1 mm and [address] DIAGNOSTIC QUALITY: Satisfactory FINDINGS: LUNG NODULES: Stable pleural-based 3.3 mm right upper lobe pulmonary nodule (series 4, image 103). No new or enlarging pulmonary nodules. LUNGS: COPD: Severity: None Fibrosis: Severity: None Lymph nodes: None Other findings: Small areas of pneumonitis identified within the bilateral anterior aspect of both up per lobes. RIGHT PLEURAL SPACE: Effusion: None Calcification: None Thickening: None Pneumothorax: None LEFT PLEURAL SPACE: Effusion: None Calcification: None Thickening: None Pneumothorax: None HEART: Heart Size: Normal Coronary Calcification: Small Pericardial Effusion: None OTHER FINDINGS: Upper abdomen: None Bony thorax: No acute osseous abnormality. Cervical fusion hardware. Prominent Schmorl's node involvi ng the inferior endplate of T12 vertebral body. Supraclavicular region: None Other: None IMPRESSION: 1. Stable right upper lobe 3.3 mm pulmonary nodule. No new or enlarging pulmonary nodules. 2. Small regions of pneumonitis within the anterior bilateral upper lobes. CT LUNG RAD AND CT CHEST RECOMMENDATION: Lung-Rad 2 Benign Appearance or Behavior: Continue annual sc reening with LDCT in 12 months. S Modifier (other clinically significant findings): None
== END | disposition home or self-care (01) ==
LOC: RADCTMAIN 15:21
PROVIDERS: ATTEND Family Medicine
DX: Z12.2 Encounter for screening for malignant neoplasm of respiratory organs (principal); R91.1 Solitary pulmonary nodule; J18.9 Pneumonia, unspecified organism; F17.210 Nicotine dependence, cigarettes, uncomplicated
CPT/HCPCS: 71271

== ENCOUNTER → 2022-12-21 | Outpatient (CLI) | payer OTHER ==
--- NOTE | 2022-12-21 15:03 | XR ---
EXAMINATION TYPE: XR foot complete RT DATE OF EXAM: 12/21/2022 COMPARISON: NONE HISTORY: Pain TECHNIQUE: Three views are submitted. FINDINGS: The osseous structures are intact. There is no acute fracture or dislocation. Mild hypertrophic ar thropathy first MTP. Chronic deformity distal phalanx fifth digit.. IMPRESSION: 1. No acute fracture or dislocation. If symptoms persist, follow-up exam in 7 to 10 days could be ob tained.
== END | disposition home or self-care (01) ==
LOC: RADXRMAIN 14:13
PROVIDERS: ATTEND Family Medicine
DX: M79.671 Pain in right foot (principal)

== ENCOUNTER → 2024-01-18 | Outpatient (CLI) | payer OTHER ==
--- NOTE | 2024-01-18 13:48 | CTL ---
EXAMINATION TYPE: CT Low Dose Lung DATE OF EXAM ORDERED: 01/18/2024 HISTORY: Personal history of tobacco use, current smoker, 39 pack-year history. Lung cancer screening CT DLP: 72.[address] CTDI: 2.2 mGy Automated exposure control for dose reduction was used. SCREENING VISIT: Third screening visit COMPARISON: CT Low Dose Lung 11/18/2022, 07/16/2020 TECHNIQUE: Low dose computed tomography scan was performed through the chest at 1 mm thick sections a nd reconstructed images in multiple planes at 1 mm and [address] DIAGNOSTIC QUALITY: Satisfactory FINDINGS: LUNG NODULES: Stable pleural-based 3.2 mm right upper lobe pulmonary nodule (series 6, image 18). No new or enlarging pulmonary nodules. LUNGS: COPD: Severity: None Fibrosis: Severity: None Lymph nodes: None Other findings: Stable small groundglass region within the anterior aspect of the right upper lobe. RIGHT PLEURAL SPACE: Effusion: None Calcification: None Thickening: None Pneumothorax: None LEFT PLEURAL SPACE: Effusion: None Calcification: None Thickening: None Pneumothorax: None HEART: Heart Size: Normal Coronary Calcification: Small Pericardial Effusion: None OTHER FINDINGS: Upper abdomen: None Bony thorax: No acute osseous abnormality. Prominent Schmorl's node involving the inferior endplate o f T12 vertebral body. Supraclavicular region: None Other: None IMPRESSION: Stable right upper lobe 3.2 mm pulmonary nodule. No new or enlarging pulmonary nodules. CT LUNG RAD AND CT CHEST RECOMMENDATION: Lung-Rad 2 Benign Appearance or Behavior: Continue annual sc reening with LDCT in 12 months. S Modifier (other clinically significant findings): None [facility], , 01/18/2024 1:46 PM
== END | disposition home or self-care (01) ==
LOC: RADCTMAIN 13:01
PROVIDERS: ATTEND Family Medicine
DX: Z12.2 Encounter for screening for malignant neoplasm of respiratory organs
CPT/HCPCS: 71271

== ENCOUNTER → 2024-06-05 | Outpatient (CLI) | payer OTHER ==
--- NOTE | 2024-06-06 07:49 | MM ---
Reason for Exam: Screening (asymptomatic). Last mammogram was performed 2 year(s) and 2 month(s) ago. Patient History: Menarche at age 13. First Full-Term at age 17. Hysterectomy at age 35. Hormonal Contraceptives for 17 years, 1 month, from age 18 until age 35. 10/13/2016, Benign Core Biopsy on the left side. Daughter had breast cancer under age 50. Risk Values: Maura 5 year model risk: 3.0%. NCI Lifetime model risk: 15.8%. Prior Study Comparison: 05/10/2019 Bilateral Screening Mammogram, [facility]. 08/11/2020 Bilateral Screening Mammogram, [facility]. 03/23/2022 Bilateral MG 3D screening mammo w/cad, [facility]. Tissue Density: The breasts are heterogeneously dense, which may obscure small masses. Findings: Analyzed By CAD. Left breast biopsy clip. Right breast: There is no suspicious group of microcalcifications or new suspicious mass. Left breast: There is no suspicious group of microcalcifications or new suspicious mass. Overall Assessment: Negative, BI-RAD 1 Management: Screening Mammogram of both breasts in [address] [facility] will attempt to contact patient to return for supplemental views and ultrasound if indicated. Patient should continue monthly self-breast exams. A clinical breast exam by your physician is recommended on an annual basis. This exam should not preclude additional follow-up of suspicious palpable abnormalities. Note on Maura scores and lifetime risk: 1. A Maura score greater than 3% is considered moderate risk. If this is the case, consider specialist referral to assess eligibility for a risk reducing agent. 2. If overall lifetime risk for the development of breast cancer is 20% or higher, the patient may qualify for future screening with alternating mammogram and breast MRI. [facility], , 06/06/2024 7:45 AM. Electronically signed and approved by: Antonino Squires DO
== END | disposition home or self-care (01) ==
LOC: RADMAMWWP 16:00
PROVIDERS: ATTEND Family Medicine
DX: Z12.31 Encounter for screening mammogram for malignant neoplasm of breast (principal); R92.333 Mammographic heterogeneous density, bilateral breasts; Z80.3 Family history of malignant neoplasm of breast; Z92.0 Personal history of contraception
CPT/HCPCS: 77063; 77067